=== PATIENT | male | born 1950 | race Caucasian/White ===

== ENCOUNTER → 2017-09-12 | Outpatient (CLI) | payer OTHER ==
[~2017-09-12] VITALS: Ht 177.8 cm; Wt 78.5 kg
[~2017-09-12] MED LIST: ADVIL200 M2 PO; ALPRAZOLAM 0.50.5 M1 PO; ALPRAZOLAM 0.50.5 MG PO; ANALGESIC325 MG PO; ASA5UEC; ASPIRIN EC81 M1 PO; BACLOFEN PO; CALTRATE-600 W1 EACH PO; CARAFATE 1 GM TA1 G1; CLARITIN10 MG PO; CYMBALTA60 MG PO; DARVOCET-N 1001 EACH; DARVOCET-N 1001 EACH PO; DILAUDID 2 MG TA2 MG PO; DILAUDID 4 MG TA4 M1 PO; DILAUDID2 M1 PO; FISH OIL + VIT1 EACH PO; FISHOIL; FLEXI JOINT TA1 EAC1 PO; GABAPENTIN PO; GLUCOSAMIN-CHO1 EACH PO; GRALISE600 MG PO; HYDROCODON-ACE1 EAC7 PO; HYDROCODON-ACE1 EAC8 PO; LIORESAL 10 MG10 MG PO; LIPITOR20 MG PO; MOBIC15 MG PO; MOBIC7.5 MG PO; MULTIPLE VITAM1 EAC1 PO; MULTIVITAMINS PO; NABUMETONE 500500 M1 PO; NAPROXEN 220 M220 M1 PO; NEURONTIN 300300 M1; NEURONTIN 300300 M1 PO; NEURONTIN 300M300 M2 PO; NORCO 10-325 T1 EACH PO; NORFLEX100 MG PO; PREDNISONE 10 M10 M1 PO; PREDNISONE50 MG PO; PROTONIX40 M1 PO; PROTONIX40 M2 PO; REMERON15 MG PO; RESTORIL30 MG PO; SIMVASTATIN20 MG; TEGRETOL XR100 MG PO; TRAMADOL 50 MG50 MG PO; VICODIN 5-5001 EACH; VICODIN 5-5001 EACH PO; VITAMIN D31000 UNI1 PO; VYTORIN 10-201 EACH PO; XANAX 0.5 MG0.5 M1 PO; XANAX 0.5 MG0.5 MG PO
--- NOTE | ~2017-09-12 | HPC ---
[facility] [address] [place] [address] PAIN MANAGEMENT CONSULTATION Name: NORA GARCÍA Room #: [facility] [id number] Admission: 09/12/17 Attend Phys: Shaggy Cedeno DO Discharge: Date of : 54 Report #: [id number] THIS REPORT FOR: //name// CC: TAYLOR physician/PCP Shaggy Cedeno DATE OF SERVICE: 09/12/2017 HISTORY OF PRESENT ILLNESS: The patient is a very pleasant 67-year-old gentleman whose care I originally took over in 2003 for ongoing lumbar radicular pain. He progressed to have decompressive laminectomy and spinal cord stimulator implant. He was last seen in the pain clinic back in 01/2016, somewhat lost to followup. He was doing reasonably well off all opiate analgesics, with simply taking gabapentin at a therapeutic dose, Cymbalta 60 mg, baclofen for spasm and tramadol. He was doing well with this, using a spinal cord stimulator which gave some paresthesia from about the waist down. Without antecedent trauma or overuse, he simply developed acute exacerbation of pain in the left hip around the beginning of the year. Pain became problematic to the point that he was admitted to [facility] in early June. Orthopedic evaluation showed no pathology in the hip proper; by verbal reports, bone scan showed no activity here either. He saw Dr. Kessler at [facility], though I have no notes from this. They suggested that perhaps pain may be related to lumbar compromise. He did have his spinal cord stimulator IPG replaced, 03/15/2017. He does have good paresthesia coverage, however current acute pain eclipses the pain relief he typically receives with the SCS. The patient notes the pain is exacerbated with standing, walking and bending. Pain is primarily in the left hip. Really, it does not radiate much into the buttocks, but down a little bit into the lateral and modestly into the anterior thigh. He rates the pain a 3-4 on a VAS at present. It has gotten a little better. He had been disabled to the point that he was walking with a walker. PHYSICAL EXAMINATION: GENERAL: Shows 67-year-old gentleman, with BMI 24.8 kilograms per meter squared. VITAL SIGNS: Blood pressure is modestly elevated at 140/95, pulse 70 and respiration 16. MUSCULOSKELETAL: He rises from the chair using armrest, moderately antalgic gait. Slight decreased left hip flexion strength, about 3-4/5; all other muscle groups are objectively 4/5 to testing. Left patellar reflex is absent; it is 1/4 on the right. Straight leg raise is nominally positive on the left. Skin integument is intact. [facility] [address] [place] [address] PAIN MANAGEMENT CONSULTATION Name: NORA GARCÍA Room #: REG DIANE Clarke#: [id number] Admission: 09/12/17 Attend Phys: Shaggy Cedeno DO Discharge: Date of : 54 Report #: [id number] There are no recent diagnostic studies available. Patient believes that he had an MRI. We will endeavor to see if that was accomplished at [facility] while he was an inpatient; will request results. ASSESSMENT: Symptomatic lumbar radiculopathy, status post decompressive laminectomy with acute left L2 radicular pain. RECOMMENDATIONS: We will seek authorization for left L2-L3 transforaminal epidural injection at the next visit and continue current medication unchanged. The patient was seen for approximately 30 minutes today. Greater than 50% of this time was spent counseling the patient, reviewing interval health history and discussing therapeutic options. <ELECTRONICALLY SIGNED> By: Shaggy Cedeno DO 09/13/17 [id number] Shaggy Cedeno DO /nt
[2017-09-12 09:06] VITALS: BP 142/95
== END ==
LOC: PAIN 09-06 12:39
DX: M54.16 Radiculopathy, lumbar region (principal); M96.1 Postlaminectomy syndrome, not elsewhere classified